=== PATIENT | male | born 1955 | race Two or more races ===

== ENCOUNTER → 2021-07-03 | Outpatient (CLI) | payer BC ==
--- NOTE | 2021-07-03 15:02 | CONS ---
CONSULTATION DATE OF SERVICE: 07/03/2021 This 65-year-old gentleman has been evaluated in [facility] for possible obstructive sleep apnea-hypopnea syndrome. HISTORY OF PRESENT ILLNESS/SLEEP-WAKE EVALUATION: Patient's usual sleep schedule is from 9 p.m. to 5 a.m. on weekdays and from 10 or 10:30 p.m. until 6 a.m. on weekends. No problems with falling asleep, although he has a TV set in the bedroom. He usually sleeps on the side position and stomach position. He has loud snoring and witnessed episodes of stopped breathing during sleep. He wakes up from sleep 5 to 6 times with episodes of nocturia. No history of hypnagogic hallucinations, sleep paralysis or cataplexy. Positive history of sleepwalking, restless leg symptoms, sleeptalking and sweating. In the morning the patient wakes up tired, has problems with memory, irritability. [place] Sleepiness Scale is increased to 10. He drinks one cup of coffee a day. PAST MEDICAL HISTORY: Positive for hypertension, acid reflux, COPD. PAST SURGICAL HISTORY: Cholecystectomy. MEDICATIONS: 1. Omeprazole 40 mg once a day. 2. Atenolol 50 mg once a day. 3. Losartan 50 mg once a day. 4. Pravastatin 10 mg once a day. 5. Hydrochlorothiazide 50 mg once a day. 6. Combivent. 7. Respimat as needed. SOCIAL HISTORY: Negative for smoking. Alcohol consumption occasional. FAMILY HISTORY: Heart problems, hypertension, stroke, sleep apnea, restless legs. PHYSICAL EXAMINATION: GENERAL: Pleasant gentleman without distress. VITAL SIGNS: BP 136/96, HR 69, RR 16, height 5 feet 11-1/4 inches, weight 205 pounds, body mass index 28.4, temperature 97.2, oxygen saturation at room air 97%. HEENT: PERRLA, EOMI, evaluation of oropharynx showed tongue protrudes midline. Extremely low position of soft palate; Mallampati IV. NECK: Supple, no JVD. Thyroid is not palpable. Neck is wide; 18-1/2 inches in circumference. LUNGS: Clear to percussion and to auscultation. Good air exchange. No wheezing or rhonchi. HEART: S1, S2 regular. No murmurs, gallops, or rubs. ABDOMEN: Soft and nontender. Bowel sounds are present. No organomegaly appreciated. EXTREMITIES: No clubbing or cyanosis. 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 Cranial nerves 2 to 7 intact. There is no fasciculation or atrophy. noted. No focal deficits observed. IMPRESSION: 1. Loud snoring, witnessed episodes of stopped breathing during sleep, extremely low position of soft palate, Mallampati IV, wide neck, 18-1/2 inches in circumference, sleepiness, [place] Sleepiness Scale of 10; obstructive sleep apnea-hypopnea syndrome. 2. Hypertension. 3. Acid reflux. 4. Chronic obstructive pulmonary disease. 5. Restless leg symptoms. 6. Status post cholecystectomy. PLAN: 1. Home sleep apnea test for evaluation of patient's breathing during sleep. 2. CPAP/BiPAP titration if sleep study confirms obstructive sleep apnea-hypopnea syndrome. 3. Preferable position during sleep on the side. 4. No driving if patient feels any sleepiness. 5. I will see patient for follow up visit to explain results of testing and following plan. Thank you very much for referring this patient for consultation. Sincerely, Phillip Culp MD, PhD, FAASM Diplomat of [place] [employer] Sleep Medicine Board of [place] [employer] Air Brakes Inspector of [facility] [place] MMODL / IJN: [id number] /
== END ==
LOC: SLEEP 13:13
PROVIDERS: ATTEND Internal Medicine
DX: G47.33 Obstructive sleep apnea (adult) (pediatric) (principal); I10 Essential (primary) hypertension; K21.9 Gastro-esophageal reflux disease without esophagitis; J44.9 Chronic obstructive pulmonary disease, unspecified
CPT/HCPCS: 99202

== ENCOUNTER → 2023-06-21 | Outpatient (CLI) | payer MEDICARE ==
--- NOTE | 2023-06-21 12:37 | P.PN ---
Subjective DATE: 06/21/2023 FOLLOW UP VISIT. Patient returned to sleep center for follow-up visit. In July 2021 home sleep apnea test showed obstructive sleep apnea with apnea-hypopnea index 28.7. Patient was started on treatment with outer Pap, but was not able to tolerate the treatment and quit treatment without coming for follow-up visit at that time. Patient continued to have significant problems related to sleep apnea. [place] sleepiness scale is significantly increased to 15. . MEDICATIONS:1. Hydrochlorothiazide 50 mg once a day 2. Fluoxetine 20 mg once a day 3. Atorvastatin 20 mg once a day 4. Omeprazole 40 mg once a day 5. Atenolol 50 mg once a day 6. Losartan 50 mg once a day 7. Breo Ellipta 8. Montelukast 10 mg once a day During physical exam: GENERAL: A pleasant patient without any distress. VITAL SIGNS: BP 163/94, HR 60, RR 16 , weight 219, temperature 97.5, oxygen saturation at room air 98% . HEENT: PERRLA, EOMI. extremely low position of soft palate Mallampati 4. NECK: Supple. No JVD. LUNGS: Clear to percussion and to auscultation. Good air exchange. No wheezing or rhonchi. HEART: S1, S2 regular. ABDOMEN: Soft and nontender. EXTREMITIES: No clubbing or cyanosis. 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 No focal deficit. Impressions: 1. Obstructive sleep apnea hypopnea syndrome 2. Hypertension. 3. History of COPD. 4. Acid reflux. 5. Status post cholecystectomy. Plan: 1. Repeat home sleep apnea test 2. Sleep hygiene with regular time in bed for at least 8 hours. 3. Patient may need CPAP titration, because previously was not able to tolerate CPAP therapy. 4. Precautions related to driving. No driving if feel any sleepiness. Patient is aware about civil and criminal liability for unsafe driving, promised to follow recommendations. 5. Following plan after reading sleep study. Thank you very much for allowing me to participate in the management of your patient. Phillip Culp MD, PhD, FAASM. Diplomat of [place] [employer], Sleep Medicine Board by [place] [employer] Pharmacy Student of [facility] [place]
== END ==
LOC: 3 N SLEEP 10:41
PROVIDERS: ATTEND Internal Medicine
DX: G47.33 Obstructive sleep apnea (adult) (pediatric) (principal); I10 Essential (primary) hypertension; J44.9 Chronic obstructive pulmonary disease, unspecified; K21.9 Gastro-esophageal reflux disease without esophagitis; Z90.49 Acquired absence of other specified parts of digestive tract; Z79.51 Long term (current) use of inhaled steroids; Z79.899 Other long term (current) drug therapy; Z98.890 Other specified postprocedural states
CPT/HCPCS: 99212

== ENCOUNTER → 2023-06-28 | Outpatient (CLI) | payer MEDICARE ==
--- NOTE | 2023-06-30 11:59 | P.PCN ---
Description of Procedure: CLINICAL: A home sleep apnea test has been done for confirmation of possible obstructive sleep apnea-hypopnea syndrome. DESCRIPTION OF PROCEDURE: RESULTS: Recording time was 8 hours 53 minutes. Evaluation time was 4 hours 45 minutes. Evaluation time is sufficient for making conclusion about results of the test. Raw data of sleep recording has been reviewed and is adequate. Respiratory channel showed 24 apneas and 69 hypopneas. Apnea-hypopnea index was 19.5 per hour. Pulse rate in the range between minimum 52, maximum 137, average 62 by computer calculation. Lowest desaturation was 75%. IMPRESSION: 1. Moderate Obstructive Sleep Apnea Hypopnea Syndrome. Please see other impressions from consultation. PLAN: 1. The patient should have PAP titration for correction of respiratory abnormallities during sleep. Previously patient was not able to tolerate AutoPap treatment. 2. I will see patient for follow up visit to discuss results of the test, evaluate clinical response on treatment with PAP therapy and make any necessary adjustments related to mask fitting, pressure, and humidification. 3. Watching weight. 4. Sleep hygiene with regular time in bed for at least 8 hours. 5. No driving if feeling any sleepiness. Thank you very much for allowing me to participate in the management of your patient. Sincerely, Phillip Culp MD, PhD, FAASM Diplomat of [place] [employer] Sleep Medicine Board of [place] [employer] Production Worker of [facility] [place]
== END ==
LOC: 3 N SLEEP 12:54
PROVIDERS: ATTEND Internal Medicine
DX: G47.33 Obstructive sleep apnea (adult) (pediatric) (principal)

== ENCOUNTER 2023-08-19 19:36 | Outpatient (CLI) | payer MEDICARE ==
--- NOTE | 2023-09-06 17:42 | P.PCN ---
Date of Procedure: 08/19/23 Operative Findings: CPAP titration study Date of services 08/19/2023 Pertinent history This is a 68-year-old male patient with moderately severe obstructive sleep apnea. The patient has undergone a home sleep study and the patient was found to have an AHI of 19.5. He is coming in for a CPAP titration study. Note that the patient has undergone his CPAP titration in the lab as the patient previous issues with intolerance to CPAP therapy back in 2021. We are trying to implement CPAP therapy again based on this current titration Technical description The patient was studied using a standard complex polysomnography protocol that included recording of the 2 EKG, Central, occipital and frontal EEG, right and left outer canthus EOG, submental EMG, right and left anterior tibialis EMG, respiratory airflow by thermocouple and or pressure/flow transducer, respiratory efforts by abdominal and thoracic PVDF belts, oxygen saturation by cable oximetry. Position by observation synchronized the PSG. Stepwise CPAP titration was done to the mid obstructive respiratory events equipment used: Intapp. Sleep characteristics The total recording duration was 420.5 minutes. The total sleep time was 351.5 minutes. The total sleep efficiency was 83.6%. Related to sleep onset was 34 minutes. The latency to REM sleep was 102 minutes. The sleep architecture was catheterized by 10% stage I, 68.6% stage II, 0% stage III and 23% REM sleep. The wake after sleep onset time was 34.5 minutes. The total arousal index was 11.6 Respiratory analysis the patient was started on CPAP therapy initially at a pressure of 7 cm of water and pressure was gradually increased by increments of 1 cm to julio ch a maximum CPAP pressure of 13 cm of water. I carefully reviewed CPAP titration taken, the patient sleep stage and body position. The patient was studied in supine and nonsupine body position and the patient also had a prolonged REM. There was adequate ablation of the obstructive respiratory events at the various CPAP pressures. Noted that the patient was still encountering some obstructive hypopneas during REM sleep. Ultimately, titration ended at a pressure of 13 cm of water. There was improvement in the patient's oxygenation without any significant desaturation while being on CPAP therapy Sleep continuity summary The patient had a total of 68 arousals throughout the sleep study with an index of 11.6. Respiratory arousal index was 0.9 Periodic limb movement summary Excessive periodic limb movements were noted a total of 463 events were counted with an index of 79. The patient had 3 periodic limb movements with arousals with an index of 0.5 Cardiac summary Average heart rate was 52 with a minimum heart rate of 50. Assessment Moderately severe obstructive sleep apnea with an AHI of 19, the patient underwent a CPAP titration. The patient had an in lab CPAP titration as the patient has had difficulties in tolerating CPAP therapy in the past Plan Proceed with treating this patient with CPAP. The patient is going to be offered an APAP machine pressures of 7/13 cm of water. Note that his disease is worse during REM sleep and an APAP mode should be able to eliminate obstructive respiratory events during REM and non-REM sleep. Noted the patient had adequate ablation of the obstructive respiratory events with improvement in the oxygenation. The patient is going to be provided a AirFit P10 nasal pillow medium size. The patient will see me back in the office in 30 to 90 days to assess clinical response and compliancy will make further adjustments based on his overall tolerability and clinical response.
== END 2023-08-20 05:15 | disposition home or self-care (01) ==
LOC: 3 N SLEEP 19:36
PROVIDERS: ATTEND Internal Medicine Critical Care Medicine
DX: G47.33 Obstructive sleep apnea (adult) (pediatric) (principal)
CPT/HCPCS: 95811